=== PATIENT | female | born 1950 | race Caucasian/White ===

== ENCOUNTER → 2017-02-08 | Outpatient (CLI) | payer MEDICARE ==
[~2017-02-08] MED LIST: ASPIRIN LO-DOSE81 MG PO; CELEXA40 MG PO; FELODIPINE ER2.5 MG PO; LIPITOR40 MG PO; LISINOPRIL-HCT1 EAC2 PO; NORCO 5-325 TA1 EACH PO; THIAMINE HCL100 MG PO
== END | disposition disaster alternative care site (69) ==
LOC: GRAD 02-01 09:00
DX: I65.29 Occlusion and stenosis of unspecified carotid artery (principal); I65.21 Occlusion and stenosis of right carotid artery
CPT/HCPCS: Q9967

== ENCOUNTER 2017-02-19 09:00 | Inpatient (IN) | payer MEDICARE ==
[~2017-02-19] VITALS: Ht 167.6 cm; Wt 92.3 kg
--- NOTE | ~2017-02-19 | OR ---
PATIENT'S NAME: MICHAEL LONG [facility] AGE: 66 Y [address] ROOM: [place] [address] [facility] ADMIT DATE: 02/24/2017 OR/Procedure Report DISCHARGE DATE: FAMILY PHYSICIAN: Dino Rico PA-C ATTENDING PHYSICIAN: TOM MOSS SURGEON: Tom Moss MD DIGITAL MARKETING ASSISTANT: DATE OF PROCEDURE: 02/24/2017 PREOPERATIVE DIAGNOSIS: High-grade right internal carotid artery stenosis. POSTOPERATIVE DIAGNOSIS: High-grade right internal carotid artery stenosis. PROCEDURES PERFORMED: Right carotid endarterectomy with bovine pericardial patch. SALES MANAGER: Sandy Gambino, nurse practitioner. Sandy provided retraction, help with the endarterectomy, and closure of the wound. ANESTHESIA: General. ESTIMATED BLOOD LOSS: 100 mL. OPERATIVE FINDINGS: Neurologically intact at the end of the case. Heavily calcified, near-occlusive lesion of the right ICA. DESCRIPTION OF PROCEDURE: The patient was brought into the Operating Room, placed supine on the operative table, placed under general anesthesia, and prepped and draped in a sterile manner. A preoperative time-out was performed. The patient received preoperative antibiotics. We made a standard incision along the anterior border of the sternocleidomastoid muscle. We transected the platysma, dissected out the internal jugular, and dissected along its length. We dissected out the facial vein, which was then ligated and transected. We then dissected out the common, the external, internal, and the superior thyroid. We gave 5000 units of heparin. We clamped proximally and distally all arteries. We placed clips on the superior thyroid, removed the clamp from the internal, and performed a back pressure which showed adequate pressure and which did not require a shunt. We clamped the artery and made an arteriotomy using 11-blade as well as Bacon scissors from the common to the internal. We removed the plaque in its entirety. We then did a standard 6-0 [place] patch using a bovine pericardial patch. Before completing the anastomosis, we allowed backbleeding from all the major vessels. We then completed the anastomosis, and removed the clamp from the common and the PATIENT'S NAME: MICHAEL LONG [facility] AGE: 66 Y [address] ROOM: [place] [id number] [facility]: [facility] ADMIT DATE: 02/24/2017 OR/Procedure Report DISCHARGE DATE: FAMILY PHYSICIAN: Dino Rico PA-C ATTENDING PHYSICIAN: TOM MOSS external. We waited 10 heartbeats and removed the clamp from the internal. Any bleeding sites along the patch length were repaired with 6-0 Prolene. Heparin was reversed with the use of protamine. WOUND CLOSURE: Deep layers were closed with 2-0 and 3-0 Vicryls. Skin was closed with running Monocryl. Surgicel was used locally in the wound as well as thrombin for hemostasis. POSTOPERATIVE CONDITION: The patient tolerated the procedure well, awoken in the Operating Room neurologically intact, and was transferred to the Recovery Room and up to the floor. MD NARCISO COHEN/modl /[id number] d: 02/24/172229 t: 02/28/17 1628, OPERATIVE SUMMARY
[2017-02-19] MEDS ORDERED: ASPIRIN LO-DOSE81 MG PO (10:08)
[2017-02-19] MEDS ORDERED: CELEXA40 MG PO (10:09)
[2017-02-19] MEDS ORDERED: LISINOPRIL-HCT1 EAC2 PO (10:09)
[2017-02-19] MEDS ORDERED: FELODIPINE ER2.5 MG PO (10:09)
[2017-02-24 09:10] LABS: ALBUMIN 3.6 gm/dL (3.5-5.0); ALK PHOS 84 IU/L (33-138); ALT 37 IU/L (12-78); ANION GAP 12.1 (10.0-19.0); AST 33 IU/L (10-40); BLOOD UREA NITROGEN 14 mg/dL (6-24); CALCIUM 8.6 mg/dL (8.5-10.5); CHLORIDE 106 mMol/L (96-110); CO2 26 mMol/L (22-32); CREATININE 0.6 mg/dL (0.5-1.1); POTASSIUM 4.1 mMol/L (3.7-5.1); SODIUM 140 mMol/L (135-145); TOTAL BILIRUBIN 0.4 mg/dL (0.0-1.5); TOTAL PROTEIN 6.9 g/dL (6.0-8.4)
[2017-02-25 09:01] LABS: BASOPHIL % 0.3 %; EOSINOPHIL # 0.1 K/uL (0.0-0.5); EOSINOPHIL % 1.1 %; HEMATOCRIT 41.1 % (33.0-46.0); HEMOGLOBIN 13.3 g/dL (10.0-15.0); IMMATURE GRANULOCYTE % 0.4 %; LYMPHOCYTE # 1.3 K/uL (0.8-4.0); LYMPHOCYTE % 13.2 %; MCH 32.8 pg (27.0-34.0); MCHC 32.4 gm/dL (32.0-36.5); MCV 101.5 fl (83.0-98.0); MONOCYTE % 10.3 %; MPV 9.3 fl (9.4-12.4); NEUTROPHIL # (ANC) 7.3 K/uL (1.8-7.8); NEUTROPHIL % 74.7 %; NRBC % 0 /100WBC (0-0.00); PLATELET COUNT 270 K/uL (150-450); RBC 4.05 M/uL (3.50-5.50); RDW-CV 13.1 % (11.9-14.6); WBC 9.7 K/uL (4.0-11.0)
[2017-02-25 09:18] LABS: ANION GAP 9.2 (10.0-19.0); BLOOD UREA NITROGEN 9 mg/dL (6-24); CALCIUM 8.1 mg/dL (8.5-10.5); CHLORIDE 101 mMol/L (96-110); CO2 31 mMol/L (22-32); CREATININE 0.7 mg/dL (0.5-1.1); POTASSIUM 4.2 mMol/L (3.7-5.1); SODIUM 137 mMol/L (135-145)
[2017-02-25] MEDS ORDERED: LIPITOR40 MG PO (16:02)
[2017-02-25] MEDS ORDERED: NORCO 5-325 TA1 EACH PO (16:04)
[2017-02-25] MEDS ORDERED: THIAMINE HCL100 MG PO (16:10)
== END 2017-02-25 18:00 | disposition disaster alternative care site (69) | DRG 37 ==
LOC: GPCU 02-24 07:12
PROVIDERS: ADMIT Surgery Vascular Surgery
PROC: 03CK0ZZ Extirpation of Matter from Right Internal Carotid Artery, Open Approach (ICD-10-PCS; principal; 2017-02-24)
DX: I65.23 Occlusion and stenosis of bilateral carotid arteries (principal); J96.21 Acute and chronic respiratory failure with hypoxia; J44.9 Chronic obstructive pulmonary disease, unspecified; I10 Essential (primary) hypertension; F10.10 Alcohol abuse, uncomplicated; Z72.0 Tobacco use; R91.1 Solitary pulmonary nodule
CPT/HCPCS: J0690; J1644; J2001; J2270; J2405; J2720; J3010; J3480; J7030; J7050; J7120